=== PATIENT | female | born 1995 | race Caucasian/White ===

== ENCOUNTER 2020-12-13 19:42 | Emergency (ER) | payer SELFPAY ==
[2020-12-15 12:16] LABS: Chlamydia by PCR Not Detected (NotDetected); GC by PCR Not Detected (NotDetected)
== END 2020-12-13 21:13 | disposition home or self-care (01) ==
LOC: MADERS 19:42
DX: O20.0 Threatened abortion (principal); Z3A.09 9 weeks gestation of pregnancy
CPT/HCPCS: 36415; 84702; 86900; 86901; 87480; 87491; 87510; 87591; 87660; 99284

== ENCOUNTER 2021-08-07 09:35 | Emergency (ER) | payer MEDICAID ==
[2021-08-08 00:25] LABS: SARS-CoV-2 PCR by NAA DETECTED (NotDetected)
== END 2021-08-07 10:42 | disposition home or self-care (01) ==
LOC: MADERS 09:35
DX: O98.513 Other viral diseases complicating pregnancy, third trimester (principal); U07.1 COVID-19; Z3A.33 33 weeks gestation of pregnancy; O30.003 Twin pregnancy, unspecified number of placenta and unspecified number of amniotic sacs, third trimester
CPT/HCPCS: 87804; 99284; U0003; U0005

== ENCOUNTER 2023-08-07 07:27 | Emergency (ER) | payer MEDICAID, OTHER, SELFPAY ==
[2023-08-07] MEDS ORDERED: Ipratropium/Albuterol 3 ML NEB ONE (08:16)
== END 2023-08-07 08:30 | disposition home or self-care (01) ==
LOC: MADERS 07:27
DX: J06.9 Acute upper respiratory infection, unspecified (principal)
CPT/HCPCS: 87804; J7620